=== PATIENT | female | born 1960 | race Caucasian/White ===

== ENCOUNTER 2020-10-26 13:07 | Observation (INO) | payer MEDICARE, SELFPAY ==
[2020-10-26] VITALS (10 sets, daily range): BP systolic 98–158; BP diastolic 62–105; PULSE 75–94; RESP 18–20; TEMP 36.7; O2SAT 94–100; BMI 32.0
--- NOTE | 2020-10-26 13:21 | XRR_ITS ---
PROCEDURE INFORMATION: Exam: XR Chest Exam date and time: 10/26/2020 1:21 PM Age: 60 years old Clinical indication: Shortness of breath; Additional info: SOB TECHNIQUE: Imaging protocol: XR of the chest. Views: 1 view. COMPARISON: No relevant prior studies available. FINDINGS: Lungs: Peripheral bibasilar and right medial basilar consolidation is present, consistent with atelectasis, edema, or pneumonia. Pulmonary vascularity is within normal limits. Pleural spaces: Unremarkable. No pleural effusion. No pneumothorax. Heart/Mediastinum: Unremarkable. No cardiomegaly. Bones/joints: No acute abnormality. XR/XR chest 1V portable [id number] IMPRESSION: Peripheral bibasilar and right medial basilar consolidation is present, consistent with atelectasis, edema, or pneumonia.
[2020-10-26] MEDS: ondansetron 2 mg/ML SDV 2 mL 4 MG IV (14:21)
[2020-10-26] MEDS: ketorolac 30 mg/mL INJ 15 MG IVP (14:21)
[2020-10-26] MEDS: morphine 4 mg/mL SDV 1 mL IVP (14:21)
[2020-10-26] MEDS: sodium chloride 0.9% 1,000 ML 150 ML IV (14:22)
[2020-10-26 14:28] LABS: Basophils % 0.3 %; Eosinophils % 0.2 %; Hematocrit 37.4 % (37.0-47.0); Hemoglobin 11.2 g/dL (11.5-15.3); Lymphocytes # 1.6 10^3/uL (0.8-4.8); Lymphocytes % 13.5 %; Mean Corpuscular HGB Conc 29.9 g/dL (30.0-36.0); Mean Corpuscular Hemoglobin 26.5 pg (28.0-34.0); Mean Corpuscular Volume 88.6 fl (81-99); Mean Platelet Volume 11.5 fL (7.4-10.4); Monocytes # 0.9 10^3/uL (0.2-0.9); Monocytes % 7.5 %; Neutrophils % 77.6 %; Nucleated Red Blood Cells % 0 %; Platelet Count 269 10^3/cmm (130-400); Red Blood Count 4.22 10^6/uL (4.1-5.3); Red Cell Distribution Width 13.3 % (12.1-15.1); White Blood Count 11.7 10^3/uL (4.0-10.0)
[2020-10-26 14:49] LABS: Alanine Aminotransferase 12 U/L (0-33); Albumin Level 3.5 g/dL (3.5-5.2); Alkaline Phosphatase 147 IU/L (35-105); Blood Urea Nitrogen 19 mg/dL (6-20); C Reactive Protein 62.8 mg/L (0.0-4.9); Calcium 8.5 mg/dL (8.5-10.5); Carbon Dioxide 21 mmol/L (22-29); Chloride 98 mmol/L (98-107); Globulin 4.2 g/dL (1.3-4.6); Glomerular Filtration Rate 42.1 mL/min (90-130); Glucose 206 mg/dL (65-115); Lactic Sepsis W/Reflex 1.3 mmol/L (0.5-2.2); Osmolality Calculated 282 mOsm/kg (285-295); Sodium 132 mmol/L (136-145); Total Bilirubin 0.3 mg/dL (0.15-1.2); Total Protein 7.7 g/dL (6.6-8.7)
--- NOTE | 2020-10-26 14:52 | ED_ITS ---
HPI - COVID General: Chief Complaint: COVID symptoms Stated Complaint: COVID +/ WEAKNESS Time Seen by Provider: 10/26/20 13:14 Triage information: Has fever, cough or shortness of breath . Exposure to COVID + person last 14 days History of Present Illness: HPI Narrative: This patient is a 60 year old female presenting by EMS from home with weakness. She is on day 8 of COVID with a positive test on Day 2. She was given the monoclonal antibody infusion on Day 5. She was not vaccinated. She has been having cough, SOB, dry heaves, poor appetite, body aches, sore throat, severe weakness. She thought she was going to pass out today when she was trying to take a shower. Her daughter says that she passed out and was unresponsive afterwards. On her arrival here she is awake and alert but ill appearing. She reports a temp of 105 last night at home. She took tylenol a few hours before presentation today. MD complaint: known COVID positive COVID 19 common symptoms: positive fever(s), chills, cough, dyspnea, fatigue, body aches, headache(s), throat pain, nasal congestion and nausea COVID 19 other sytmptoms: negative chest pain Onset (ago): day(s) (8) Severity: severe Pertinent comorbid conditions: diabetes Treatment prior to arrival: acetaminophen and monocloncal antibody COVID Results: No Data to Display Review of Systems General: Reports: 10 or more systems reviewed and unremarkable except in HPI and below Const: Reports: fever(s), chills, body aches and fatigue Eyes: Denies: change in vision ENMT: Reports: throat pain and nasal congestion Card: Denies: chest pain or swelling of feet/ankles Resp: Reports: dyspnea GI: Reports: nausea : Denies: flank pain or difficulty voiding Musc: Denies: neck pain or back pain Skin/Breast: Denies: rash Neuro: Reports: headache(s) Sam/Lymph: Denies: easy bruising or easy bleeding Physical Exam Const: COMMON NORMALS: patient oriented x3, no limitations and alert GENERAL APPEARANCE: cooperative, comfortable and ill appearing NUTRITIONAL APPEARANCE: overweight HENMT: HEAD & SCALP: normal to inspection FACE & SINUS: normal facial exam Eye: GENERAL EYE: appearance normal, both eyes and all related structures Neck/C-Spine: COMMON NORMALS: supple, no meningeal signs and no JVD Chest: COMMONS NORMALS: normal inspection of the chest Resp: COMMON NORMALS: normal respiratory effort and No use of accessory muscles AUSCULTATION: crackles Cardio: COMMON NORMALS: no JVD, regular rate, regular rhythm and No murmurs present (Cardio) RATE: regular rate RHYTHM: regular rhythm GI: COMMON NORMALS: Normal to inspection, nondistended, normoactive bowel sounds present, Soft to palpation and non-tender INSPECTION: Yes normal to inspection AUSCULTATION: Yes normoactive bowel sounds PALPATION: Yes Soft to palpation Back/Pelvis: COMMON NORMALS: thoracic and lumbar spine normal to inspection Extremity: COMMON NORMALS: normal to inspection Neuro: COMMON NORMALS: patient oriented x3, moves all extremities, no focal motor deficits and no sensory deficits noted SENSORIUM/ORIENTATION: Yes alert MENINGEAL SIGNS: Yes no meningeal signs Psych: COMMON NORMALS: mental status grossly normal, cooperative and normal affect Skin: COMMON NORMALS: no rashes or lesions noted and turgor normal GENERAL SKIN EXAM: no rashes or lesions noted and turgor normal Course ED course: Patient improved somewhat with fluids and oxygen, but still very weak and not taking PO. Repeat labs without much improvement. She does not feel that she can go home and I agree that she would benefit from admission. Sats are ok, but she is more comfortable on oxygen. Will discuss with hospitalist. Vital Signs: Vital signs: Vital Signs Temperature 98.1 F 10/26/20 13:15 Pulse Rate 75 10/26/20 17:38 Respiratory Rate 18 10/26/20 17:38 Blood Pressure 124/62 10/26/20 17:38 Pulse Oximetry 100 10/26/20 17:38 MDM - COVID Lab Data: Labs: Lab Results 10/26/20 10/26/20 10/26/20 Range/Units 14:00 14:00 14:00 WBC 11.7 H (4.0-10.0) 10^3/ uL RBC 4.22 (4.1-5.3) 10^6/u L Hgb 11.2 L (11.5-15.3) g/dL Hct 37.4 (37.0-47.0) % MCV 88.6 (81-99) fl MCH 26.5 L (28.0-34.0) pg MCHC 29.9 L (30.0-36.0) g/dL RDW 13.3 (12.1-15.1) % Plt Count 269 (130-400) 10^3/c mm MPV 11.5 H (7.4-10.4) fL Neut % (Auto) 77.6 % Lymph % (Auto) 13.5 % Tompkins % (Auto) 7.5 % Eos % (Auto) 0.2 % Baso % (Auto) 0.3 % Neut # (Auto) 9.10 H (1.8-7.7) 10^3/u L Lymph # (Auto) 1.6 (0.8-4.8) 10^3/u L Tompkins # (Auto) 0.9 (0.2-0.9) 10^3/u L Eos # (Auto) 0.0 (0.0-0.8) 10^3/u L Baso # (Auto) 0.0 (0.0-0.1) 10^3/u L Nucleated RBC % (a uto) 0 % Nucleated RBCs # 0.0 /100WBC Sodium 132 L (136-145) mmol/L Potassium 5.2 H (3.5-5.1) mmol/L Chloride 98 (98-107) mmol/L Carbon Dioxide 21 L (22-29) mmol/L Anion Gap 18.2 (5-19) BUN 19 (6-20) mg/dL Creatinine 1.3 H (0.5-0.9) mg/dL GFR Calculation 42.1 L (90-130) mL/min Glucose 206 H (65-115) mg/dL Calculated Osmolal ity 282 L (285-295) mOsm/k g Lactic Acid 1.3 (0.5-2.2) mmol/L Calcium 8.5 (8.5-10.5) mg/dL Total Bilirubin 0.3 (0.15-1.2) mg/dL AST 22 (0-32) U/L ALT 12 (0-33) U/L Alkaline Phosphata se 147 H (35-105) IU/L C-Reactive Protein 62.8 H (0.0-4.9) mg/L Total Protein 7.7 (6.6-8.7) g/dL Albumin 3.5 (3.5-5.2) g/dL Globulin 4.2 (1.3-4.6) g/dL Procalcitonin 0.16 (0-0.5) ng/mL 10/26/20 Range/Units 17:55 WBC (4.0-10.0) 10^3/ uL RBC (4.1-5.3) 10^6/u L Hgb (11.5-15.3) g/dL Hct (37.0-47.0) % MCV (81-99) fl MCH (28.0-34.0) pg MCHC (30.0-36.0) g/dL RDW (12.1-15.1) % Plt Count (130-400) 10^3/c mm MPV (7.4-10.4) fL Neut % (Auto) % Lymph % (Auto) % Tompkins % (Auto) % Eos % (Auto) % Baso % (Auto) % Neut # (Auto) (1.8-7.7) 10^3/u L Lymph # (Auto) (0.8-4.8) 10^3/u L Tompkins # (Auto) (0.2-0.9) 10^3/u L Eos # (Auto) (0.0-0.8) 10^3/u L Baso # (Auto) (0.0-0.1) 10^3/u L Nucleated RBC % (a uto) % Nucleated RBCs # /100WBC Sodium 134 L (136-145) mmol/L Potassium 5.6 H (3.5-5.1) mmol/L Chloride 103 (98-107) mmol/L Carbon Dioxide 22 (22-29) mmol/L Anion Gap 14.6 (5-19) BUN 16 (6-20) mg/dL Creatinine 1.2 H (0.5-0.9) mg/dL GFR Calculation 46.1 L (90-130) mL/min Glucose 199 H (65-115) mg/dL Calculated Osmolal ity 285 (285-295) mOsm/k g Lactic Acid (0.5-2.2) mmol/L Calcium 7.8 L (8.5-10.5) mg/dL Total Bilirubin (0.15-1.2) mg/dL AST (0-32) U/L ALT (0-33) U/L Alkaline Phosphata se (35-105) IU/L C-Reactive Protein (0.0-4.9) mg/L Total Protein (6.6-8.7) g/dL Albumin (3.5-5.2) g/dL Globulin (1.3-4.6) g/dL Procalcitonin (0-0.5) ng/mL COVID Results: No Data to Display Discharge Plan Discharge Patient Disposition: Placed in Observation Clinical Impression: COVID-19, Acute dehydration Coding Level of Care Code ED Inspector Final Assembly Conveyor Line for [facility] Fwd Exam Comprehensive
[2020-10-26 14:55] LABS: Procalcitonin 0.16 ng/mL (0-0.5)
[2020-10-26 14:56] LABS: Anion Gap 18.2 (5-19); Aspartate Amino Transferase 22 U/L (0-32); Potassium 5.2 mmol/L (3.5-5.1)
[2020-10-26] MEDS: dexamethasone 10 mg/mL INJ 6 MG IVP (15:51)
[2020-10-26] MEDS: sodium chloride 0.9% 500 ML 999 ML IV (16:36)
[2020-10-26 18:27] LABS: Anion Gap 14.6 (5-19); Blood Urea Nitrogen 16 mg/dL (6-20); Calcium 7.8 mg/dL (8.5-10.5); Carbon Dioxide 22 mmol/L (22-29); Chloride 103 mmol/L (98-107); Glomerular Filtration Rate 46.1 mL/min (90-130); Glucose 199 mg/dL (65-115); Osmolality Calculated 285 mOsm/kg (285-295); Potassium 5.6 mmol/L (3.5-5.1); Sodium 134 mmol/L (136-145)
--- NOTE | 2020-10-26 21:58 | CTR_ITS ---
PROCEDURE INFORMATION: Exam: CTA Chest With Contrast Exam date and time: 10/26/2020 9:58 PM Age: 60 years old Clinical indication: Shortness of breath; Additional info: Covid, syncope, dyspnea, evaluate for pe TECHNIQUE: Imaging protocol: Computed tomographic angiography of the chest with contrast. 3D rendering (Not supervised by radiologist): MIP and/or 3D reconstructed images were created by the technologist. Radiation optimization: All CT scans at this facility use at least one of these dose optimization techniques: automated exposure control; mA and/or kV adjustment per patient size (includes targeted exams where dose is matched to clinical indication); or iterative reconstruction. Contrast material: OMNI 350; Contrast volume: 75 ml; Contrast route: INTRAVENOUS (IV); COMPARISON: CR (CHEST, ) 10/26/2020 1:52 PM RADIATION DOSE METRICS: Total DLP (mGy-cm): 592.18 FINDINGS: Pulmonary arteries: No filling defects in the pulmonary arteries to suggest pulmonary embolism. Aorta: Minimal atherosclerotic changes in the visualized arteries. No evidence for aortic aneurysm or aortic dissection. Lungs: Tracheobronchial structures are patent. Multiple areas of ground-glass opacification and crazy paving in the periphery of both lungs. Findings are consistent with COVID-19 pneumonia. No pulmonary parenchymal nodules or masses. Pleural spaces: No pneumothorax. No pleural effusion. Heart: No cardiomegaly. No pericardial effusion. Mediastinal space: The esophagus is unremarkable. No mediastinal hematoma. No pneumomediastinum. Lymph nodes: No lymphadenopathy. No lymphadenopathy. Liver: Single calcified granuloma in the liver. Gallbladder and bile ducts: Patient has had a previous cholecystectomy. Dilatation of the biliary ducts, not unexpected in a patient who has had a prior cholecystectomy. Pancreas: The pancreas is unremarkable. No pancreatic ductal dilatation. Spleen: The spleen is unremarkable. Adrenal glands: The right and left adrenal glands are unremarkable. Kidneys and ureters: The visualized right and left kidneys are unremarkable. Bones/joints: Mild degenerative changes in the visualized spine. Soft tissues: The extrathoracic soft tissues are unremarkable. CT/CT angio chest PE protcl [id number] IMPRESSION: 1. Multiple areas of ground-glass opacification and crazy paving in the periphery of both lungs. Findings are consistent with COVID-19 pneumonia. Recommend followup chest imaging to insure resolution of these findings. 2. No evidence for pulmonary embolism. 3. Incidental/nonacute findings are listed in the report. Radiation Dose CTDIVOL = (mGy): DLP = 592.18 (mGy-cm)
[2020-10-26] MEDS: sodium chloride 0.9% 1,000 ML 75 ML IV (22:23)
[2020-10-26] MEDS: iohexol 350 mg/mL 100 mL Btl IV (22:41)
[2020-10-26] MEDS: remdesivir 200 MG in sodium chloride 0.9% (100 ml) 100 ML 100 MG IV (22:57)
[2020-10-26] MEDS: dextrose 50% syringe 50 mL IVP (23:15)
[2020-10-26] MEDS: insulin regular-human 100 units/1 mL 10 UNIT IVP (23:16)
[2020-10-27] VITALS (14 sets, daily range): BP systolic 111–176; BP diastolic 69–89; PULSE 72–99; RESP 16–20; TEMP 36.4–36.6; O2SAT 90–98; BMI 22.1
--- NOTE | 2020-10-27 01:49 | P.HP_ITS ---
Providers/Chief Complaint Admitting Physician: Patricia Molina MD Chief Complaint: COVID +/ WEAKNESS History of Present Illness Dorinda Ventura is a 60 year old female diagnosed recently with COVID 19 pneumonia at [facility] 8 days ago, received monoclonal Ab infusion 3 days ago. Presented to the ER today due to ongoing high grade fever of 105F at home, generalized weakness and episode of transient LOC described by daughter at home when attempting to take a shower today. Also reports dry cough, SOB, poor appetite, body aches, and sore throat. On Arrival to ER she was noted to be ill appearing a dehydrated, BP 98/62 mmhg , saturating 90% on RA, thereafter placed on 2lpm supplemental 02. CTA chest negative for PE, shows B/L patchy infiltrates c/w COVID 19 pneumonitis. She is unvaccinated. Review of Systems General: Reports: 10 or more systems reviewed and unremarkable except in HPI and below Const: Reports: fever(s), chills and body aches Eyes: Denies: change in vision, blurry vision or photophobia ENMT: Reports: throat pain and hoarseness; Denies: enlarged tonsils, odynophagia or nasal congestion Card: Denies: chest pain, palpitations, irregular heart rhythm, edema, swelling of feet/ankles, lightheadedness, pre-syncope, dyspnea on exertion or orthopnea Resp: Reports: dyspnea and non-productive cough; Denies: productive cough, wheezing, stridor, pain on inspiration, change in phlegm color, hemoptysis or chest congestion GI: Reports: nausea; Denies: abdominal pain, vomiting, hematemesis, coffee ground emesis, dysphagia, heartburn, diarrhea, constipation, GI cramping, change in stool character, hematochezia or melena : Denies: flank pain, difficulty voiding, dysuria, urinary frequency, urinary urgency, urinary hesitancy or hematuria Musc: Denies: neck pain, back pain, extremity pain, joint swelling, joint warmth or deformity Neuro: Denies: headache(s), numbness in extremities, weakness in extremities, sensory changes, difficulty walking, frequent falls, dizziness, vertigo, behavioral changes, Slurred speech present or seizure-like activity Psych: Denies: anxiety, depression, suicidal ideation or homicidal ideation Endo: Denies: polyuria, polydipsia, tired all the time, cold intolerance or hot flashes Sam/Lymph: Denies: easy bruising or easy bleeding Medications/Allergies Home Medications Medication Instructions Recorded Confirmed Last Taken Type alprazolam 1 mg PO DAILY PRN MDD PT IS OUT OF 10/26/20 10/26/20 Unknown History MED atorvastatin 80 mg PO DAILY 10/26/20 10/26/20 10/19/20 History cyclobenzaprine 5 mg PO DAILY PRN 10/26/20 10/26/20 Unknown History ergocalciferol (vitamin D2) 1,250 mcg PO Q7D MDD PT IS OUT OF 10/26/20 10/26/20 Unknown History MED gabapentin 300 mg PO BEDTIME 10/26/20 10/26/20 10/25/20 History insulin aspart U-100 [Novolog See Rx Instructions .ROUTE .COMPLEX 10/26/20 10/26/20 Unknown History Flexpen U-100 Insulin] insulin glargine [Lantus Solostar 36 unit SUBCUT BEDTIME 10/26/20 10/26/20 10/19/20 History U-100 Insulin] levothyroxine [Euthyrox] 100 mcg PO DAILY 10/26/20 10/26/20 10/19/20 History lisinopril 10 mg PO DAILY 10/26/20 10/26/20 10/19/20 History sitagliptin-metformin [Janumet] 1 tab PO BID 10/26/20 10/26/20 10/19/20 History Allergies Allergy/AdvReac Type Severity Reaction Status Date / Time Penicillins Allergy ALGY-Rash Verified 10/26/20 13:21 PFSH Acute PFSH: Medical History (Updated 10/27/20 @ 02:03 by Patricia Molina MD) Anxiety Diabetes Dyslipidemia Hypertension Vitals/I&O/Wt Last Vital Signs Temp 97.9 F 10/27/20 01:43 Pulse 78 10/27/20 01:43 Resp 16 10/27/20 01:43 BP 176/89 10/27/20 01:43 Pulse Ox 94 10/27/20 01:43 10/26/20 10/26/20 10/27/20 14:59 22:59 06:59 Intake Total 1500 / 1500 1100 / 2600 Balance 1500 / 1500 1100 / 2600 Weight last 48 hrs Weight 79.379 kg Physical Exam Narrative: EXAM NARRATIVE: General: appears anxious, uncomfortable, AAO x 3 HEENT: PERRLA, pupils bilaterally equal and reactive, pallors not present Chest: Normal vesicular breath sounds, scattered crackles B/L CVS: S1-S2 regular, no murmurs, no tachycardia, no gallops, no rubs Abdomen: Soft, nontender, no organomegaly, bowel sounds present Neuro: No focal deficits, no facial deformity, AO x3, power 5/5 in all limbs Data : 10/26/20 14:00 10/26/20 17:55 A&P Assessment and plan (1) COVID-19: Admit to med/surg [place] [facility] [place] Remdisivir 200mg iv x 1 followed by 100mg iv daily dexamethasone 6mg IVP daily duoneb q6h, budesonide q12h Procal negative, hold off on abx for now Flutter valve/spirometer at bedside trend inflammatory markers including CRP, D dimer CTA PE negative for PE, shows B/L patchy pneumonitis currently on 2lpm via NC Status: Acute (2) Acute dehydration: likely related to acute viral illness IVF NS @75cc/hr check orthostatic BP encourage po intake Status: Acute (3) Hyperkalemia: ordered for insulin dextrose and albuterol nebulization recheck K check EKG for any changes Status: Acute Additional A&P Information hypothyroidism: Continue levothyroxine HLD: continue atorvastatin Full code DVT ppx: lovenox Attestations Medical Necessity Statement*: Anticipate less than 2midnight admission for management of generalized weakness, IVF for acute dehydration., monitoring of respiratry status Coding Level of Care Code Acute Associate Programmer Analyst for [facility] Fwd Diagnoses COVID-19 U07.1 Acute dehydration E86.0 Hyperkalemia E87.5
--- NOTE | 2020-10-27 02:17 | ECG_ITS ---
[facility] Test Date: 2020-10-27 Pat Name: Dorinda Ventura Department: Room: 266 Gender: Female Appraiser Art: : [id number] Requested By: Patricia Molina Order Number: [id number] [place] MD: Lexus Mathews M.D. Measurements Intervals [place] Rate: 83 P: 50 TN: 131 QRS: 26 QRSD: 93 T: 44 QT: 392 QTc: 461 Interpretive Statements SINUS RHYTHM No previous ECG available for comparison Electronically Signed On 10-27-2020 19:21:46 CDT by Lexus Mathews M.D. [id number]
[2020-10-27] MEDS: enoxaparin 40 mg/0.4 mL Syringe SUBCUT (02:21)
[2020-10-27 06:36] LABS: Glucose Point of Care 407 mg/dL (70-110)
[2020-10-27 06:41] LABS: Basophils % 0.2 %; Hematocrit 28.7 % (37.0-47.0); Hemoglobin 8.8 g/dL (11.5-15.3); Lymphocytes # 1.1 10^3/uL (0.8-4.8); Lymphocytes % 17.2 %; Mean Corpuscular HGB Conc 30.7 g/dL (30.0-36.0); Mean Corpuscular Hemoglobin 26.5 pg (28.0-34.0); Mean Corpuscular Volume 86.4 fl (81-99); Mean Platelet Volume 11.8 fL (7.4-10.4); Monocytes # 0.3 10^3/uL (0.2-0.9); Neutrophils # 4.89 10^3/uL (1.8-7.7); Neutrophils % 76.3 %; Nucleated Red Blood Cells % 0 %; Platelet Count 266 10^3/cmm (130-400); Red Blood Count 3.32 10^6/uL (4.1-5.3); Red Cell Distribution Width 13.3 % (12.1-15.1); White Blood Count 6.4 10^3/uL (4.0-10.0)
[2020-10-27 06:53] LABS: D Dimer 2.03 ug/mIFEU (0-0.59)
[2020-10-27 07:04] LABS: C Reactive Protein 93.7 mg/L (0.0-4.9)
[2020-10-27 07:05] LABS: Alanine Aminotransferase 15 U/L (0-33); Albumin Level 3.1 g/dL (3.5-5.2); Alkaline Phosphatase 172 IU/L (35-105); Blood Urea Nitrogen 16 mg/dL (6-20); Calcium 8.2 mg/dL (8.5-10.5); Carbon Dioxide 20 mmol/L (22-29); Chloride 98 mmol/L (98-107); Creatinine Clr Calc Pharmacy 45.8348; Globulin 3.3 g/dL (1.3-4.6); Glucose 368 mg/dL (65-115); Osmolality Calculated 284 mOsm/kg (285-295); Sodium 129 mmol/L (136-145); Total Bilirubin 0.2 mg/dL (0.15-1.2); Total Protein 6.4 g/dL (6.6-8.7)
[2020-10-27 07:09] LABS: Anion Gap 16.4 (5-19); Potassium 5.4 mmol/L (3.5-5.1)
[2020-10-27 07:10] LABS: Aspartate Amino Transferase 23 U/L (0-32)
[2020-10-27] MEDS: budesonide 0.5 mg/2 mL Neb INHALATION ×2 (08:16→20:27)
[2020-10-27] MEDS: ipratropium-albuterol 3 mL Neb INHALATION ×3 (08:16→20:27)
[2020-10-27] MEDS: atorvastatin 40 mg Tablet 80 MG PO (08:43)
[2020-10-27] MEDS: levothyroxine 100 mcg Tablet PO (08:43)
[2020-10-27] MEDS: pantoprazole DR 40 mg Tablet PO (08:43)
[2020-10-27 11:34] LABS: Glucose Point of Care 446 mg/dL (70-110)
[2020-10-27] MEDS: sodium chloride 0.9% 1,000 ML 75 ML IV (12:15)
[2020-10-27] MEDS: acetaminophen 325 mg Tablet 650 MG PO (13:16)
[2020-10-27] MEDS: dexamethasone 4 mg/mL INJ 6 MG IVP (17:13)
[2020-10-27] MEDS: remdesivir 100 MG in sodium chloride 0.9% (100 ml) 100 ML IV (17:13)
[2020-10-27 17:30] LABS: Glucose Point of Care 238 mg/dL (70-110)
--- NOTE | 2020-10-27 17:43 | PC.RESP ---
RT Shift Note Frequent safety and respiratory rounds continue. Orders completed as indicated. Patient monitored pre and post treatments throughout shift. Patient did tolerate treatments appropriately. Condition did not change. Patient and/or community representative educated on respiratory treatment and medications. Patient and/or community representative verbalized understanding. Will continue to monitor patient progress.
[2020-10-27 20:10] LABS: Glucose Point of Care 251 mg/dL (70-110)
--- NOTE | 2020-10-27 20:54 | PM.PN ---
Subjective Subjective: Interval history: She feels extremely fatigued/tired and malaised today. Having difficult time getting up and around. Vitals/I&O/Wt Last Vital Signs Temp 97.7 F 10/27/20 20:00 Pulse 89 10/27/20 20:32 Resp 16 10/27/20 20:32 BP 140/74 10/27/20 20:00 Pulse Ox 96 10/27/20 20:32 10/27/20 10/27/20 10/27/20 06:59 14:59 22:59 Intake Total 1100 / 2600 240 / 240 100 / 340 Output Total 200 / 200 Balance 900 / 2400 240 / 240 100 / 340 Weight last 48 hrs Weight 55.055 kg Weight 79.379 kg Physical Exam Const: COMMON NORMALS: no acute distress and patient oriented x3 GENERAL APPEARANCE: ill appearing ORIENTATION/CONSCIOUSNESS: Yes awake HENMT: COMMON NORMALS: oropharynx normal Neck/C-Spine: COMMON NORMALS: no JVD Resp: COMMON NORMALS: normal respiratory effort and clear to auscultation bilaterally AUSCULTATION: clear to auscultation bilaterally Cardio: COMMON NORMALS: no JVD, regular rhythm, S1 normal heart sound present, S2 normal heart sound present and No murmurs present (Cardio) RHYTHM: regular rhythm HEART SOUNDS: S1 normal heart sound present and S2 normal heart sound present GI: COMMON NORMALS: Normal to inspection, nondistended, normoactive bowel sounds present, Soft to palpation and non-tender PALPATION: Yes Soft to palpation Extremity: COMMON NORMALS: no joint enlargement and no pedal edema Neuro: COMMON NORMALS: patient oriented x3 and moves all extremities Skin: COMMON NORMALS: no rashes or lesions noted GENERAL SKIN EXAM: no rashes or lesions noted Data : 10/27/20 06:26 10/27/20 06:26 A&P Assessment and plan (1) COVID-19: Severe COVID-19 on admission started on remdesivir, Decadron. Appears to be weaning off oxygen improving to moderate severity illness. Very fatigued today, fatigue with exertion. Discussed with her we will continue treatment today, if continues to improve, without worsening hypoxia, tentative plan possibly for return home tomorrow. Recheck labs in the morning. Status: Acute (2) Acute dehydration: Noted orthostasis, lying on her 34 systolic down to 111 standing. Received IV fluid challenge. encourage po intake Status: Acute (3) Hyperkalemia: Low potassium diet. Hold lisinopril. Status: Acute Additional A&P Information hypothyroidism: Continue levothyroxine HLD: continue atorvastatin Full code DVT ppx: lovenox Attestations Medical Necessity Statement*: Continue hospitalization for COVID-19 with improving but still functionally limiting symptoms, continue treatment, pending reassessment and possible discharge home if continues to improve. Coding Level of Care Code Acute Telecommunications Manager for Chg Fwd Diagnoses COVID-19 U07.1 Acute dehydration E86.0 Hyperkalemia E87.5
[2020-10-27] MEDS: gabapentin 300 mg Capsule PO (21:05)
[2020-10-27] MEDS: morphine 4 mg/mL SDV 1 mL 2 MG IVP (21:05)
[2020-10-28] VITALS (7 sets, daily range): BP systolic 124–155; BP diastolic 75–82; PULSE 75–97; RESP 16–18; TEMP 36.5–36.6; O2SAT 94–98
[2020-10-28 03:25] LABS: Basophils % 0.1 %; Hematocrit 28.7 % (37.0-47.0); Lymphocytes # 0.8 10^3/uL (0.8-4.8); Lymphocytes % 9.5 %; Mean Corpuscular HGB Conc 31.4 g/dL (30.0-36.0); Mean Corpuscular Hemoglobin 26.2 pg (28.0-34.0); Mean Corpuscular Volume 83.7 fl (81-99); Mean Platelet Volume 11.4 fL (7.4-10.4); Monocytes # 0.3 10^3/uL (0.2-0.9); Monocytes % 3.7 %; Neutrophils # 7.22 10^3/uL (1.8-7.7); Neutrophils % 84.5 %; Nucleated Red Blood Cells % 0 %; Platelet Count 350 10^3/cmm (130-400); Red Blood Count 3.43 10^6/uL (4.1-5.3); Red Cell Distribution Width 13.5 % (12.1-15.1); White Blood Count 8.6 10^3/uL (4.0-10.0)
[2020-10-28] MEDS: ipratropium-albuterol 3 mL Neb INHALATION ×2 (03:28→08:38)
[2020-10-28 03:39] LABS: D Dimer 2.01 ug/mIFEU (0-0.59)
[2020-10-28 03:41] LABS: Alanine Aminotransferase 9 U/L (0-33); Albumin Level 3.3 g/dL (3.5-5.2); Alkaline Phosphatase 187 IU/L (35-105); Anion Gap 13.6 (5-19); Aspartate Amino Transferase 14 U/L (0-32); Blood Urea Nitrogen 21 mg/dL (6-20); Calcium 8.7 mg/dL (8.5-10.5); Carbon Dioxide 24 mmol/L (22-29); Chloride 102 mmol/L (98-107); Globulin 3.5 g/dL (1.3-4.6); Glomerular Filtration Rate 46.1 mL/min (90-130); Glucose 317 mg/dL (65-115); Osmolality Calculated 293 mOsm/kg (285-295); Potassium 5.6 mmol/L (3.5-5.1); Sodium 134 mmol/L (136-145); Total Bilirubin 0.2 mg/dL (0.15-1.2); Total Protein 6.8 g/dL (6.6-8.7)
[2020-10-28 06:13] LABS: Glucose Point of Care 388 mg/dL (70-110)
[2020-10-28] MEDS: atorvastatin 40 mg Tablet 80 MG PO (08:04)
[2020-10-28] MEDS: levothyroxine 100 mcg Tablet PO (08:05)
[2020-10-28] MEDS: pantoprazole DR 40 mg Tablet PO (08:05)
[2020-10-28] MEDS: budesonide 0.5 mg/2 mL Neb INHALATION (08:38)
[2020-10-28 11:11] LABS: Glucose Point of Care 423 mg/dL (70-110)
--- NOTE | 2020-10-28 13:38 | PM.DCS ---
Discharge Providers Date of Admission: 10/26/20 19:54 Date of Discharge: October 28, 2020 Attending Provider at Admission: Patricia Molina MD Attending Provider at Discharge: Raleigh Mai Diagnoses at Discharge Discharge Diagnosis (1) COVID-19: Status: Acute (2) Acute dehydration: Status: Acute (3) Hyperkalemia: Status: Acute Reason for Visit Reason for Visit: COVID +/ WEAKNESS Hospital Course Hospital Course Pleasant 60-year-old lady who had recently moved to the area, was admitted for assessment management of severe COVID-19 pneumonia, requiring 2 L of oxygen at presentation. CTA chest was assessed and was negative for PE. She had previously received monoclonal antibody. In the hospital treated with remdesivir, Decadron, other supportive care. On presentation noted dehydration, mild acute kidney injury, received support with IV fluid. With noted mild hyperkalemia, lisinopril is discontinued. She is advised to maintain low potassium diet. As hypoxia improved, she weaned off oxygen, and from that perspective is doing well, she is discharged home to continue recovery there as she does otherwise still have other COVID-19 symptoms with mild headache, generalized fatigue. She is aware to seek medical attention in case of any concerning symptoms given a number of different complications that may arise with COVID-19, including thrombosis. We also discussed with her elevation of D-dimer which has decreased likely, but is still 2.01 today. This may be seen with COVID-19, she otherwise does not have suggestion of active thrombosis, however, we discussed elevated risk of thrombosis with this condition. We discussed consideration of post discharge VTE prophylaxis, however, she does express concern, recently with brain bleeding after a fall, and at this time prefers to continue mobilizing as tolerating. Home oxygen evaluation is obtained prior to discharge. Please follow-up for recovery from the condition. Follow-up also potassium level and renal function. Follow blood pressures, consider other lisinopril can be resumed safely. Physical Exam Const: COMMON NORMALS: no acute distress, patient oriented x3 and alert GENERAL APPEARANCE: cooperative and anxious ORIENTATION/CONSCIOUSNESS: Yes awake OTHER: Sitting up at edge of bed. HENMT: COMMON NORMALS: oropharynx normal Neck/C-Spine: COMMON NORMALS: no JVD Resp: COMMON NORMALS: normal respiratory effort and clear to auscultation bilaterally EFFORT & INSPECTION: Yes able to speak in complete sentences AUSCULTATION: clear to auscultation bilaterally Cardio: COMMON NORMALS: no JVD, regular rhythm, S1 normal heart sound present, S2 normal heart sound present and No murmurs present (Cardio) RHYTHM: regular rhythm HEART SOUNDS: S1 normal heart sound present and S2 normal heart sound present GI: COMMON NORMALS: Normal to inspection, nondistended, normoactive bowel sounds present, Soft to palpation and non-tender PALPATION: Yes Soft to palpation Extremity: COMMON NORMALS: no joint enlargement and no pedal edema Neuro: COMMON NORMALS: patient oriented x3 and moves all extremities SENSORIUM/ORIENTATION: Yes alert Skin: COMMON NORMALS: no rashes or lesions noted GENERAL SKIN EXAM: no rashes or lesions noted Discharge Data Data Completed and Pending: Completed Studies During Hospitalization Category Date Time Status CT angio chest PE protcl [id number] Urge nt Cat Scan 10/26/20 21:58 Completed XR chest 1V pamela ble [id number] Stat Exams 10/26/20 13:21 Completed Pending at discharge Category Date Time Status Complete Blood Co unt w/Auto AM LABS Lab 10/29/20 04:00 Ordered Complete Blood Co unt w/Auto AM LABS Lab 10/30/20 04:00 Ordered Comprehensive Met abolic Panel AM LA BS Lab 10/29/20 04:00 Ordered Comprehensive Met abolic Panel AM LA BS Lab 10/30/20 04:00 Ordered Labs from last 24 hours 10/28/20 10/28/20 10/28/20 11:09 06:07 02:43 WBC RBC Hgb Hct MCV MCH MCHC RDW Plt Count MPV Neut % (Auto) Lymph % (Auto) [place] % (Auto) Eos % (Auto) Baso % (Auto) Neut # (Auto) Lymph # (Auto) [place] # (Auto) Eos # (Auto) Baso # (Auto) Nucleated RBC % (a uto) Nucleated RBCs # D-Dimer 2.01 H Sodium Potassium Chloride Carbon Dioxide Anion Gap BUN Creatinine GFR Calculation Glucose POC Glucose 423 H 388 H Calculated Osmolal ity Calcium Total Bilirubin AST ALT Alkaline Phosphata se Total Protein Albumin Globulin 10/28/20 10/28/20 10/27/20 02:43 02:43 19:16 WBC 8.6 RBC 3.43 L Hgb 9.0 L Hct 28.7 L MCV 83.7 MCH 26.2 L MCHC 31.4 RDW 13.5 Plt Count 350 D MPV 11.4 H Neut % (Auto) 84.5 Lymph % (Auto) 9.5 [place] % (Auto) 3.7 Eos % (Auto) 0.0 Baso % (Auto) 0.1 Neut # (Auto) 7.22 Lymph # (Auto) 0.8 [place] # (Auto) 0.3 Eos # (Auto) 0.0 Baso # (Auto) 0.0 Nucleated RBC % (a uto) 0 Nucleated RBCs # 0.0 D-Dimer Sodium 134 L Potassium 5.6 H Chloride 102 Carbon Dioxide 24 Anion Gap 13.6 BUN 21 H Creatinine 1.2 H GFR Calculation 46.1 L Glucose 317 H POC Glucose 251 H Calculated Osmolal ity 293 Calcium 8.7 Total Bilirubin 0.2 AST 14 ALT 9 Alkaline Phosphata se 187 H Total Protein 6.8 Albumin 3.3 L Globulin 3.5 10/27/20 17:11 WBC RBC Hgb Hct MCV MCH MCHC RDW Plt Count MPV Neut % (Auto) Lymph % (Auto) [place] % (Auto) Eos % (Auto) Baso % (Auto) Neut # (Auto) Lymph # (Auto) [place] # (Auto) Eos # (Auto) Baso # (Auto) Nucleated RBC % (a uto) Nucleated RBCs # D-Dimer Sodium Potassium Chloride Carbon Dioxide Anion Gap BUN Creatinine GFR Calculation Glucose POC Glucose 238 H Calculated Osmolal ity Calcium Total Bilirubin AST ALT Alkaline Phosphata se Total Protein Albumin Globulin Vitals: Last Vital Signs Temp 97.8 F 10/28/20 11:41 Pulse 90 10/28/20 11:41 Resp 17 10/28/20 11:41 BP 124/75 10/28/20 11:41 Pulse Ox 94 10/28/20 11:41 Discharge Plan Discharge Patient Disposition: Home Condition: Stable Prescriptions: New benzonatate 100 mg Capsule 100 mg PO TID PRN (Reason: Cough) Qty: 90 RF: 0 Continued atorvastatin 80 mg tablet 80 mg PO DAILY RF: 0 alprazolam 1 mg tablet 1 mg PO DAILY MDD PT IS OUT OF MED PRN (Reason: Anxiety) RF: 0 Euthyrox 100 mcg tablet 100 mcg PO DAILY RF: 0 gabapentin 300 mg capsule 300 mg PO BEDTIME RF: 0 ergocalciferol (vitamin D2) 1,250 mcg (50,000 unit) capsule 1,250 mcg PO Q7D MDD PT IS OUT OF MED RF: 0 Novolog Flexpen U-100 Insulin 100 unit/mL (3 mL) insulin pen See Rx Instructions .ROUTE .COMPLEX RF: 0 cyclobenzaprine 5 mg tablet 5 mg PO DAILY PRN (Reason: Muscle Pain) RF: 0 Janumet 50-500 mg tablet 1 tab PO BID RF: 0 Lantus Solostar U-100 Insulin 100 unit/mL (3 mL) insulin pen 36 unit SUBCUT BEDTIME RF: 0 Discontinued lisinopril 10 mg tablet 10 mg PO DAILY RF: 0 Referrals: Mustapha Guerra [Referring] - 11/12/20 12:00 pm () Discharge Diet: As Directed, Cardiac and Diabetic Discharge Activity: Increase activity as tolerated Patient Instructions: Viral Pneumonia (GEN), Potassium Content of Foods List (GEN), Hyperkalemia (GEN) Activity Restrictions/Additional Instructions: Please follow-up with your primary provider with regards to recovering from severe COVID-19 infection. Please maintain isolation for additional 10 days for a total of 20 days since onset of symptoms. Please seek vaccination after you recover to reduce chance of recurrence of infection. It is likely you may be asked to get the vaccination 90 days after the dose of monoclonal antibodies. However, please confirm this with the vaccination center. Please avoid potassium in diet and have your primary provider. Your potassium has been mildly elevated in the hospital. Please avoid taking lisinopril which may lead your body to retain potassium. Avoid foods rich in potassium as listed in the provided materials. Please mobilize and walk as tolerating to reduce chance of developing blood clots after COVID-19 infection. Please follow-up with your primary provider, please note that your D-dimer was somewhat elevated at 2.01. This may be seen with COVID-19 infection, however, in case you develop any symptoms of swelling in either lower extremity, or chest pain, worsening cough, coughing up blood, or worsening shortness of breath, or other concerning symptoms, please call 911. Discharge Attestations Time Spent in Discharge Care*: greater than 30 min Quality Metrics Clinical Quality Measures During this hospital stay, did patient experience: None Coding Level of Care Code Acute Chg FW DC note Exam Comprehensive Diagnoses COVID-19 U07.1 Acute dehydration E86.0 Hyperkalemia E87.5
--- NOTE | 2020-10-28 14:45 | PC.NURSE ---
Discharge Note Patient discharged to home via private vehicle accompanied by daughter. Discharge instructions reviewed with patient and/or customer response representative. Mobile pharmacy medications and/or prescriptions provided. Belongings/home medications returned.
--- NOTE | 2020-10-29 11:40 | PC.SOCIAL ---
discharge follow up call made. patient reports she still isn't feeling well. patient didn't excelsior picker Benzonatate from the pharmacy, they didn't have the medication in stock, reports she hasn't been coughing so she doesn't need the medication. Patient notified of follow up appointment date and time. patient denies questions or concerns at this time. Reviewed quarantine end date and isolation precautions. Patient will be off of quarantine 11-08.
== END 2020-10-28 14:48 | disposition home or self-care (01) ==
LOC: ER 22:07 → MEDSURG 23:35
PROVIDERS: Admitting Provider Student in an Organized Health Care Education/Training Program; Emergency Provider Emergency Medicine; Visit Provider Internal Medicine
DX: U07.1 COVID-19 (principal); E86.0 Dehydration; E87.5 Hyperkalemia; N17.9 Acute kidney failure, unspecified; F41.9 Anxiety disorder, unspecified; E11.9 Type 2 diabetes mellitus without complications; I10 Essential (primary) hypertension; E03.9 Hypothyroidism, unspecified; E78.5 Hyperlipidemia, unspecified
CPT/HCPCS: 36415; 36416; 71045; 71275; 80048; 80053; 82962; 83605; 84145; 85025; 85378; 86140; 93005; 94640; 94664; 96365; 96367; 96372; 96375; 96376; 99285; G0378; J1100; J1650; J1815; J1885; J2270; J2405; J7030; J7040; J7626; Q9967